=== PATIENT | female | born 1990 | race Caucasian/White ===

== ENCOUNTER 2020-02-17 19:00 | Outpatient (CLI) | payer OTHER, SELFPAY ==
[2015-09-01 16:23] VITALS: BMI 20.5
[2020-02-17 19:21] VITALS: BP 127/80; PULSE 72
[2020-02-17 19:22] VITALS: PULSE 74; TEMP 36.1; O2SAT 99; BMI 32.1
[2020-02-17] MEDS: Lactated Ringers 1,000 ML 50 ML IV (20:10)
[2020-02-17 21:04] LABS: Absolute Lymphocyte Count 2.43 X10^3/uL (0.83-4.51); Absolute Neutrophil Count 5.7 X10^3/uL (2.0-7.7); Basophil# 0.03 X10^3/uL; Basophil% 0.3 % (0-1); Eosinophils% 1.1 % (0-5); Hematocrit 36.4 % (37-47); Hemoglobin 12.5 g/dL (12.0-15.0); Lymphocyte # 2.43 X10^3/ul (4.0); Lymphocyte % 27.4 % (19-41); Mean Corp Hgb Conc 34.3 g/dL (32-36); Mean Corpuscular Hgb 30.8 pg (27.0-32.0); Mean Corpuscular Volume 89.7 fL (81-99); Mean Platelet Vol. 9.1 fl (6.2-12.0); Monocyte# 0.58 X10^3/uL; Monocyte% 6.5 % (0-10); NRBC Flagged by Analyzer 0 % (0-5); Neutrophil # 5.69 X10^3/uL (2.7-7.7); Neutrophil % 64.1 % (47-70); Platelet Count 230 K/mm3 (150-450); RBC Distribution Width CV 13.6 % (11.6-14.6); RBC Distribution Width SD 44.7 fl (35.1-43.9); Red Blood Count 4.06 M/mm3 (4.2-5.4); White Blood Count 8.9 K/mm3 (4.4-11.0)
--- NOTE | 2020-02-18 04:32 | HP.PCM_ITS ---
History Date of Admission: 02/17/20 Final RAJ: 02/11/20 Gestational age: 40 6/7 weeks History of this : This is a 29 year-old, parous female presented for cervical ripening for 41-week induction. Ever, after arrival, patient expressed that she was having some a nxiety over induction and was not comfortable with that plan. She really wanted to elect for primary section. has been uncomplicated to date. Allergies sulfamethoxazole [From Bactrim] Adverse Reaction (Verified 09/01/15 16:24) Nausea trimethoprim [From Bactrim] Adverse Reaction (Verified 09/01/15 16:24) Nausea Home Medications: Home Medications Vits [Prenatabs FA] 1 tab PO DAILY 02/17/20 Smoking Status: Current every day smoker Number of Fetus(es): 1 NST - FHR Rate Baby A Baseline: normal Variability:: Moderate Accelerations:: None Decelerations:: None NST Reactive:: Yes FHR Category:: Category I Uterine Activity:: irritability History Past Pregnancies: Past Pregnancies Delivery Date Name GA/ Weeks Outcome Route Wt Sex Labor Length Anesthesia Delivery Location Provider FOB Physical Exam Vitals: Vital Signs Temp Pulse BP Pulse Ox 97.0 F L 74 127/80 H 99 02/17/20 19:22 02/17/20 19:22 02/17/20 19:21 02/17/20 19:22 General: Alert, Cooperative, No apparent distress Abdomen: Soft, Non Tender, Non-Distended, Gravid Neurological: Neuro grossly intact Assessment/Plan This is a 29 year-old, nulliparous female at 40-6/7 weeks declines induction. After I discussed with her and her partner the risk benefits and alternatives to section, including both short and long-term complications of as well as implications for further pregnancies. Discussed this versus induction versus expectant management for spontaneous labor were reviewed. I left the room and gave the patient and her partner discussed the plan. After their discussion, I revisited the plan with them. They elected for primary section. As it was late in the evening, I discussed with him that we would not proceed with an elective surgery and I would have to schedule it for the next day. Patient was comfortable with this plan. They agreed to be discharged home and return tomorrow. N.p.o. status was reviewed with patient.
== END 2020-02-17 21:10 | disposition home or self-care (01) ==
LOC: WPOUT 02-18 07:41 → WP 02-18 07:52
PROVIDERS: Obstetrics & Gynecology; Visit Provider Obstetrics & Gynecology
DX: O99.333 Smoking (tobacco) complicating pregnancy, third trimester (principal); F17.200 Nicotine dependence, unspecified, uncomplicated; Z3A.40 40 weeks gestation of pregnancy; Z88.1 Allergy status to other antibiotic agents; Z88.2 Allergy status to sulfonamides
CPT/HCPCS: 59025; 59050; 85025; 86850; 86900; 86901; J7120

== ENCOUNTER 2020-02-18 13:30 | Inpatient (IN) | payer OTHER, SELFPAY ==
[2020-02-17 19:22] VITALS: BMI 32.1
[2020-02-18] VITALS (13 sets, daily range): BP systolic 88–114; BP diastolic 38–83; PULSE 55–74; RESP 14–16; TEMP 35.8–36.7; O2SAT 97–100; BMI 31.7
[2020-02-18] MEDS: Lactated Ringers 1,000 ML 999 ML IV (14:00)
[2020-02-18 14:21] LABS: Absolute Lymphocyte Count 2.67 X10^3/uL (0.83-4.51); Absolute Neutrophil Count 5.9 X10^3/uL (2.0-7.7); Basophil# 0.04 X10^3/uL; Basophil% 0.4 % (0-1); Hematocrit 40.2 % (37-47); Hemoglobin 13.7 g/dL (12.0-15.0); Lymphocyte # 2.67 X10^3/ul (4.0); Lymphocyte % 27.9 % (19-41); Mean Corp Hgb Conc 34.1 g/dL (32-36); Mean Corpuscular Hgb 31.4 pg (27.0-32.0); Mean Corpuscular Volume 92.2 fL (81-99); Mean Platelet Vol. 9.1 fl (6.2-12.0); Monocyte# 0.79 X10^3/uL; Monocyte% 8.3 % (0-10); NRBC Flagged by Analyzer 0 % (0-5); Neutrophil # 5.91 X10^3/uL (2.7-7.7); Neutrophil % 61.8 % (47-70); Platelet Count 221 K/mm3 (150-450); RBC Distribution Width CV 13.7 % (11.6-14.6); RBC Distribution Width SD 46.5 fl (35.1-43.9); Red Blood Count 4.36 M/mm3 (4.2-5.4); White Blood Count 9.6 K/mm3 (4.4-11.0)
[2020-02-18] MEDS: Lactated Ringers 1,000 ML 150 ML IV (15:04)
[2020-02-18] MEDS: Sodium Citrate/Citric Acid 30 ML UDC PO (15:24)
--- NOTE | 2020-02-18 15:43 | HP.PCM_ITS ---
History Date of Admission: 02/17/20 Final RAJ: 02/11/20 Gestational age: 41 Weeks and 0 Days History of this : This is a 29 year-old, F1 P0 @ 41 weeks w/ unfavorable cervix who declines expectant management or induction and desires primary c/s. has been uncomplicated to date. Medical history is noncontributory. Past surgical history: None Allergies sulfamethoxazole [From Bactrim] Allergy (Intermediate, Verified 02/18/20 14:07) Anaphylaxis trimethoprim [From Bactrim] Adverse Reaction (Intermediate, Verified 02/18/20 14:07) Anaphylaxis Home Medications: Home Medications Vits [Prenatabs FA] 1 tab PO DAILY 02/17/20 Smoking Status: Former smoker Alcohol: None Number of Fetus(es): 1 History Past Pregnancies: Past Pregnancies Delivery Date Name GA/ Weeks Outcome Route Wt Sex Labor Length Anesthesia Delivery Location Provider FOB Expected Delivery Method: Scheduled Section Review of Systems Constitutional: Denies: Chills, Fever, Weakness Eyes: Denies: Blurred vision Gastrointestinal: Denies: Abdominal Pain, Nausea, Vomiting Neurological: Denies: Blurred vision, Change in Speech, Slurred speech Hematologic/ Lymphatic: Denies: Anemia Physical Exam General: Alert, Cooperative, No apparent distress Cardiovascular: Regular rate Lungs: Clear to auscultation Abdomen: Soft, Non Tender, Non-Distended, Gravid, Appropriate for Gestational Age Extremities:: No clubbing, No cyanosis, Other - 1+ edema Neurological: Cranial nerves II-XII grossly intact Assessment/Plan This is a 29 year-old, @41 weeks presents for elective primary c/s. Patient is requesting section. Risk benefits and alternatives to section in the discussed with the patient, her questions were answered to her satisfaction she desires to proceed. We reviewed short as well as long- term complications and risks with the including implications for future fertility and . Consent was signed. Patient desires to proceed with section. She understands that this is not the recommendation but I am honoring her request and autonomy. Essential Procedure Criteria Procedure Essential: Yes Criteria Note: plans c/s Risk to Patient if Procedure Delayed: Threat to patient's life if surgery or procedure is delayed - Patient 41 weeks, risk to patient and increased risk of demise if continues
[2020-02-18] MEDS: Cefazolin 2 GM in 0.9% Normal Saline 100 ML IV (15:56)
--- NOTE | 2020-02-18 16:57 | PCM.OPRPT ---
Delivery Classification: Scheduled Final RAJ: 02/11/20 Final RAJ Source: US <20 weeks Gestational age: 41 Weeks and 0 Days inside sales manager: Aminta Fernández Type of Anesthesia:: Spinal Special Medications: duramorph Implants Used: none Date of Procedure: 02/18/20 Pre-Operative Diagnosis: 41 week , desires elective primary delivery Post-Operative Diagnosis: same Description of Procedure: The patient was taken to the operating room. She was prepped and draped in the dorsal supine position with a leftward tilt. A Pfannenstiel skin incision was made approximately 2 cm above the symphysis pubis and carried through to underlying layer fascia with the scalpel. The fascia was incised incised in the midline and extended laterally with the Linton scissors. The fascia was dissected off the rectus muscles with blunt and sharp dissection. The rectus muscles were in the midline and the peritoneum was entered bluntly. The peritoneal incision was stretched and the bladder blade was placed. The uterine incision was made in a low transverse fashion with the scalpel and extended superiorly and inferiorly with blunt dissection. The amniotic membranes were ruptured bluntly and clear amniotic fluid returned. The infant's head was brought to the incision in the flexed position and delivered without difficulty. The remainder of the infant was delivered with gentle traction and fundal pressure in the standard fashion. The mouth and nares were bulb suctioned. The cord was clamped and cut as the infant was stimulated. Cord clamping was delayed. The infant was handed off to the waiting nursing staff. The placenta was delivered with fundal massage and gentle traction in the standard fashion. The uterus was exteriorized and cleared of all clots and debris. The cervix was dilated with a ring forcep. The uterine incision was closed with #1 Vicryl in a running locked fashion. A second layer of the same suture was used in an imbricating fashion. The incision was examined and was found to be hemostatic. The uterus was placed back into the peritoneal cavity and hemostasis was again confirmed. The rectus muscles were examined and any bleeding was Bovie cauterized. The parietal peritoneum and rectus muscles were closed en bloc with an 0 Vicryl running suture. The surgical teams outer gloves were then changed. The rectus fascia was examined and any bleeding was Bovie cauterized and the rectus fascia was closed with 1 Vicryl suture in a running standard fashion. The subcutaneous tissue was examining and any bleeding was Bovie cauterized. The subcutaneous tissue was reapproximated with 3-0 Vicryl suture. The skin was closed in a subcuticular fashion by the INSURANCE COUNSELOR with me present in the labor and delivery suite. I performed the remainder of the procedure with assistance. All sponge, lap, and needle counts were correct. The patient was taken to her room for recovery in a stable condition. Amniotic Membrane Rupture Type: Artificial Amniotic Fluid Description: Clear Placenta Disposition: [facility] Specimen(s) sent to pathology: none Drain: Hurst to straight drain Fluids Replaced: 1000 Cord Entanglement: None Cord Vessel Description: 3 Vessels Esitmated Blood Loss (ml): 800 Infant Gender: Female - Kayne (1 minute): 8 (5 minute): 9 Delayed cord clamping: Yes Antibiotic Given: Ancef 2 grams IV x1 Complications: None - Admit VTE Documentation VTE Present on Admission: No VTE Mechan Device Prophylaxis: SCD's VTE Pharm Prophylaxis ordered?: No Reason prophylaxis not ordered:: Procedure Not Indicated
[2020-02-18] MEDS: Oxytocin 30 units/NS 500 ml 30 UNITS/500 ML IV.SOLN 167 UNITS IV (17:16)
[2020-02-18] MEDS: Lactated Ringers 1,000 ML 100 ML IV (20:18)
[2020-02-18] MEDS: Ketorolac 30 MG/ML Syringe IV (23:23)
[2020-02-19] VITALS (8 sets, daily range): BP systolic 86–112; BP diastolic 48–68; PULSE 66–80; RESP 16–18; TEMP 36.4–36.8; O2SAT 97–98
[2020-02-19] MEDS: Acetaminophen 500 MG Tablet 1000 MG PO ×2 (03:00→12:50)
--- NOTE | 2020-02-19 04:27 | CPS ---
Given to pt and instructed by RN
[2020-02-19 05:14] LABS: Hematocrit 30.5 % (37-47); Hemoglobin 10.3 g/dL (12.0-15.0); Mean Corp Hgb Conc 33.8 g/dL (32-36); Mean Corpuscular Hgb 31.3 pg (27.0-32.0); Mean Corpuscular Volume 92.7 fL (81-99); Mean Platelet Vol. 8.7 fl (6.2-12.0); Platelet Count 156 K/mm3 (150-450); RBC Distribution Width CV 13.7 % (11.6-14.6); RBC Distribution Width SD 46.9 fl (35.1-43.9); Red Blood Count 3.29 M/mm3 (4.2-5.4)
[2020-02-19] MEDS: Ketorolac 30 MG/ML Syringe IV ×4 (05:22→22:47)
[2020-02-19] MEDS: 0.9% Saline Lock 10 ML Syringe IV ×5 (05:23→22:48)
--- NOTE | 2020-02-19 11:58 | PCM.PN.OB ---
Subjective: Doing well per patient and nursing staff. Ambulating and taking PO without difficulty. Voiding and passing flatus. without concerns. Denies headache, visual changes, chest pain, shortness of breath, increased vaginal bleeding or leg pain. Lochia moderate. Planning D/C home tomorrow. - Physical Exam Vitals/I&O's: Vital Signs Temp Pulse Resp BP Pulse Ox 98.0 F 73 16 104/63 98 02/19/20 11:18 02/19/20 11:18 02/19/20 11:18 02/19/20 11:18 02/19/20 07:55 Oxygen Delivery Method Room Air Weight: 184 lb 15.485 oz Body Mass Index (BMI) 31.7 Intake and Output for Last 24 Hours 02/17/20 02/18/20 02/19/20 23:59 23:59 23:59 Intake Total 1992.5 / 1991.5 1465 / 1465 Output Total 100 / 100 700 / 700 Balance 1892.5 / 1892.5 765 / 765 General: Alert, Oriented x3, Cooperative HEENT: Atraumatic, Normocephalic Neck: Trachea Midline Lungs: Clear to auscultation, Normal air movement, No rhonchi, No wheeze Cardiovascular: Regular rate, Regular Rhythm, No murmurs Abdomen: Soft, Hypoactive Bowel Sounds - Fundus firm 2 below U Extremities: No edema - Sofy's negative Psych/Mental Status: Normal Affect, Appropriate Laboratory Results 02/18/20 14:00: WBC 9.6, RBC 4.36, Hgb 13.7, Hct 40.2, MCV 92.2, MCH 31.4, MCHC 34.1, RDW Std Deviation 46.5 H, RDW Coeff of Livier 13.7, Plt Count 221, MPV 9.1, Immature Gran % (Auto) 0.600, Neut % (Auto) 61.8, Lymph % (Auto) 27.9, [place] % (Auto) 8.3, Eos % (Auto) 1.0, Baso % (Auto) 0.4, Absolute Neuts (auto) 5.9, Absolute Lymphs (auto) 2.67, Nucleated RBC % 0 02/18/20 14:00: Blood Type A POSITIVE, Antibody Screen NEGATIVE 02/19/20 05:00: WBC 13.0 H, RBC 3.29 L, Hgb 10.3 L, Hct 30.5 L, MCV 92.7, MCH 31.3, MCHC 33.8, RDW Std Deviation 46.9 H, RDW Coeff of [place] 13.7, Plt Count 156, MPV 8.7 Current Medications Acetaminophen (Tylenol) 1,000 mg PO Q8H PRN PRN Reason: Pain Score 1-3/10 Last Admin: 02/19/20 03:00 Dose: 1,000 mg Documented by: Bisacodyl (Dulcolax) 10 mg RECTAL UD PRN PRN Reason: If no BM Diphenhydramine HCl (Benadryl) 25 mg PO Q6H PRN PRN PRN Reason: ITCHING Stop: 02/19/20 16:01 Hydrocortisone (Hytone) 1 applic TOPICAL TID PRN PRN; Protocol PRN Reason: Discomfort Naloxone HCl 4 mg/ Dextrose 504 mls @ 0 mls/hr IV .Q0M PRN; Protocol PRN Reason: Respiratory depression Ketorolac Tromethamine (Toradol (Bkc)) 30 mg IV Q6H JOSÉ Stop: 02/20/20 17:01 Last Admin: 02/19/20 11:04 Dose: 30 mg Documented by: Methylergonovine Maleate (Methergine) 0.2 mg IM X1 PRN PRN Reason: Uterine Atony Nalbuphine HCl (Nubain) 5 mg IV Q3H PRN PRN PRN Reason: ITCHING Stop: 02/19/20 16:01 Naloxone HCl (Narcan) 0.02 mg IV Q1M PRN PRN Reason: RR <10 and pt unresponsive Naproxen (Naprosyn) 250 - 500 mg PO Q8H PRN PRN PRN Reason: Pain Score 1-3/10 Ondansetron HCl (Zofran) 4 mg IV Q4H PRN PRN PRN Reason: Nausea Oxycodone HCl (Oxyir) 5 - 10 mg PO Q4H PRN PRN PRN Reason: Pain Score 4-10/10 Prochlorperazine Edisylate (Compazine Iv) 10 mg IV Q6H PRN PRN PRN Reason: NAUSEA Senna/Docusate Sodium (Senokot-S, Domi-Colace) 0 tablet PO DAILY PRN PRN Reason: Constipation Simethicone (Mylicon) 80 mg PO PCHS PRN PRN Reason: Indigestion/stomach pain Sodium Chloride () 5 - 15 ml IV UD PRN PRN Reason: SALINE FLUSH Last Admin: 02/19/20 11:06 Dose: 10 ml Documented by: Medical Necessity - Tobacco Use Smoking Status: Former smoker Assessment/Plan A:POD #1 Primary Section P: 1) Routine postoperative and support 2) Vital signs stable 3) Lochia normal 4) Pain control 5) Planning D/C home tomorrow.
[2020-02-19] MEDS: oxyCODONE 5 MG Tablet PO ×2 (16:17→21:07)
[2020-02-19] MEDS: Senna/Docusate Sodium 1 Tablet PO (22:47)
[2020-02-20] MEDS: oxyCODONE 5 MG Tablet PO ×2 (02:34→11:41)
[2020-02-20 02:55] VITALS: BP 97/61; PULSE 66; RESP 18; TEMP 36.1
[2020-02-20] MEDS: Ketorolac 30 MG/ML Syringe IV ×2 (04:44→11:30)
[2020-02-20] MEDS: 0.9% Saline Lock 10 ML Syringe IV ×2 (04:44→11:31)
[2020-02-20] MEDS: Acetaminophen 500 MG Tablet 1000 MG PO (06:39)
[2020-02-20 09:21] VITALS: BP 106/67; PULSE 71; RESP 14; TEMP 37.1
--- NOTE | 2020-02-20 10:23 | PCM.PN.OB ---
Subjective: pain well controlled, average lochia, no N/V, +flatus, no BM. Denies lightheadedness, BONILLA or SOB - Physical Exam Vitals/I&O's: Vital Signs Temp Pulse Resp BP Pulse Ox 98.7 F 71 14 106/67 98 02/20/20 09:21 02/20/20 09:21 02/20/20 09:21 02/20/20 09:21 02/19/20 07:55 Oxygen Delivery Method Room Air Weight: 83.9 kg Body Mass Index (BMI) 31.7 Intake and Output for Last 24 Hours 02/18/20 02/19/20 02/20/20 23:59 23:59 23:59 Intake Total 1992.5 / 1991.5 1465 / 1465 Output Total 100 / 100 1500 / 1500 Balance 1892.5 / 1892.5 -35 / -35 General: Alert, Cooperative, No apparent distress Abdomen: Soft, Distended - mildly, softly, Tender - appropriately Extremities: Edema - 1+ Skin: Incision - bandage clean, dry and intact Current Medications Acetaminophen (Tylenol) 1,000 mg PO Q8H PRN PRN Reason: Pain Score 1-3/10 Last Admin: 02/20/20 06:39 Dose: 1,000 mg Documented by: Bisacodyl (Dulcolax) 10 mg RECTAL UD PRN PRN Reason: If no BM Hydrocortisone (Hytone) 1 applic TOPICAL TID PRN PRN; Protocol PRN Reason: Discomfort Naloxone HCl 4 mg/ Dextrose 504 mls @ 0 mls/hr IV .Q0M PRN; Protocol PRN Reason: Respiratory depression Ketorolac Tromethamine (Toradol (Bkc)) 30 mg IV Q6H JOSÉ Stop: 02/20/20 17:01 Last Admin: 02/20/20 04:44 Dose: 30 mg Documented by: Methylergonovine Maleate (Methergine) 0.2 mg IM X1 PRN PRN Reason: Uterine Atony Naloxone HCl (Narcan) 0.02 mg IV Q1M PRN PRN Reason: RR <10 and pt unresponsive Naproxen (Naprosyn) 250 - 500 mg PO Q8H PRN PRN PRN Reason: Pain Score 1-3/10 Ondansetron HCl (Zofran) 4 mg IV Q4H PRN PRN PRN Reason: Nausea Oxycodone HCl (Oxyir) 5 - 10 mg PO Q4H PRN PRN PRN Reason: Pain Score 4-10/10 Last Admin: 02/20/20 02:34 Dose: 10 mg Documented by: Prochlorperazine Edisylate (Compazine Iv) 10 mg IV Q6H PRN PRN PRN Reason: NAUSEA Senna/Docusate Sodium (Senokot-S, Domi-Colace) 0 tablet PO DAILY PRN PRN Reason: Constipation Last Admin: 02/19/20 22:47 Dose: 2 tablet Documented by: Simethicone (Mylicon) 80 mg PO PCHS PRN PRN Reason: Indigestion/stomach pain Sodium Chloride () 5 - 15 ml IV UD PRN PRN Reason: SALINE FLUSH Last Admin: 02/20/20 04:44 Dose: 10 ml Documented by: Medical Necessity - Tobacco Use Smoking Status: Former smoker Assessment/Plan POD#2 doing well routine care and doing well desires d/c home today
--- NOTE | 2020-02-20 10:30 | PCM.DCCSEC ---
Discharge Diet: No Restrictions Discharge Activity: Return to Normal Activity, May Not Drive - for 2 weeks, May not drive while taking narcotic pain medications., May Shower, May Take a Tub Bath - in 7 days. May resume sexual activity in: 4-6 weeks Lifting Restrictions: 20 pounds Additional Activity Instructions:: Nothing in the vagina for 4-6 weeks. You may return to work/school in 6 weeks. Call your doctor if your incision/area has: Continuous Slow Oozing, Sudden Increased Bleeding, Increased Pain/ Swelling, Increased Redness, Foul Smelling Discharge Call your doctor if you observe: Fever of 101 or Higher, Using more than one pad per hour - for 2 hours Suture Line Care: Avoid Pulling/Pushing, Avoid Pinching/Bending Cleanse incision/area with: Keep Dressing Clean & Dry Additional Instructions: If you experience any of the following, contact your healthcare provider. Bleeding that soaks a pad every hour for 2 hours Fever 100.4 or higher Unrelieved incision or abdominal pain Swelling, redness, discharge or bleeding from your incision or episiotomy site Your incision begins to separate Problems urinating (including inability to urinate or burning while urinating). Visual changes Severe headache Flu-like symptoms Pain or redness in one of both of your breasts Pain, warmth, tenderness or swelling in your legs, especially the calf area Frequent nausea and vomiting Symptoms of depression or anxiety If you experience any of the following, call 911 or go to the nearest Emergency Room. Chest pain Problems breathing Seizure activity Partial or complete paralysis of a body part, slurred speech, weakness or drooping of the face, or a sudden inability to walk or hold your balance Allergies/Adverse Reactions: Allergies sulfamethoxazole [From Bactrim] Allergy (Intermediate, Verified 02/18/20 14:07) Anaphylaxis trimethoprim [From Bactrim] Adverse Reaction (Intermediate, Verified 02/18/20 14:07) Anaphylaxis Medications to take at Discharge Vits [Prenatabs FA ] 1 tab PO DAILY 02/17/20 Ibuprofen [Motrin] 600 mg PO Q6H PRN #60 tab 02/20/20 Oxycodone [Oxyir] 5 mg PO Q6H PRN PRN 7 Days #15 tab 02/20/20 The following prescriptions were given: Ibuprofen [Motrin] 600 mg PO Q6H PRN #60 tab PRN Reason: Pain Transmission Status: Sent to [facility] Oxycodone [Oxyir] 5 mg PO Q6H PRN PRN 7 Days #15 tab PRN Reason: severe pain Transmission Status: Sent to [facility] Follow-Up: Call to make an appointment with your doctor for an incision check in 1-2 weeks. You will also need a 6 week post- follow up appointment. Test results from this visit will be discussed in further detail at your follow-up appointment, if applicable. Please Follow Up With: Marlen Henderson MD - Call to make an appointment for an incision check in 1-2 [phone] When: You will need a post check in 6 weeks. Primary Care Physician: Care Physician,No Primary [Primary Care Provider] -
--- NOTE | 2020-02-20 10:31 | DS.PCM_ITS ---
Discharge Date and Diagnosis Date of Admission: 02/17/20 Date of Discharge: 02/20/20 Hospital Course and Treatment Operations: - - primary LTCS Procedures: - - none Summary of Care Provided: The patient is a 29 year old underwent a primary low transverse section on 02/18/2020. Patient was 41 weeks. Declined induction of labor expectant management. After extensive counseling on the options, patient elec dawn for primary section. This was performed without difficulty. By postoperative day #2 she was ambulating, urinating tolerating regular diet without difficulty. The was doing well. Patient desired discharge home. She was given routine instructions and prescriptions. [] - Physical Exam Vitals/I&O's: Vital Signs Temp Pulse Resp BP Pulse Ox 98.7 F 71 14 106/67 98 02/20/20 09:21 02/20/20 09:21 02/20/20 09:21 02/20/20 09:21 02/19/20 07:55 Oxygen Delivery Method Room Air Weight: 83.9 kg Body Mass Index (BMI) 31.7 Intake and Output for Last 24 Hours 02/18/20 02/19/20 02/20/20 23:59 23:59 23:59 Intake Total 1992.5 / 1991.5 1465 / 1465 Output Total 100 / 100 1500 / 1500 Balance 1892.5 / 1892.5 -35 / -35 Current Medications Acetaminophen (Tylenol) 1,000 mg PO Q8H PRN PRN Reason: Pain Score 1-3/10 Last Admin: 02/20/20 06:39 Dose: 1,000 mg Documented by: Bisacodyl (Dulcolax) 10 mg RECTAL UD PRN PRN Reason: If no BM Hydrocortisone (Hytone) 1 applic TOPICAL TID PRN PRN; Protocol PRN Reason: Discomfort Naloxone HCl 4 mg/ Dextrose 504 mls @ 0 mls/hr IV .Q0M PRN; Protocol PRN Reason: Respiratory depression Ketorolac Tromethamine (Toradol (Bkc)) 30 mg IV Q6H JOSÉ Stop: 02/20/20 17:01 Last Admin: 02/20/20 04:44 Dose: 30 mg Documented by: Methylergonovine Maleate (Methergine) 0.2 mg IM X1 PRN PRN Reason: Uterine Atony Naloxone HCl (Narcan) 0.02 mg IV Q1M PRN PRN Reason: RR <10 and pt unresponsive Naproxen (Naprosyn) 250 - 500 mg PO Q8H PRN PRN PRN Reason: Pain Score 1-3/10 Ondansetron HCl (Zofran) 4 mg IV Q4H PRN PRN PRN Reason: Nausea Oxycodone HCl (Oxyir) 5 - 10 mg PO Q4H PRN PRN PRN Reason: Pain Score 4-10/10 Last Admin: 02/20/20 02:34 Dose: 10 mg Documented by: Prochlorperazine Edisylate (Compazine Iv) 10 mg IV Q6H PRN PRN PRN Reason: NAUSEA Senna/Docusate Sodium (Senokot-S, Domi-Colace) 0 tablet PO DAILY PRN PRN Reason: Constipation Last Admin: 02/19/20 22:47 Dose: 2 tablet Documented by: Simethicone (Mylicon) 80 mg PO PCHS PRN PRN Reason: Indigestion/stomach pain Sodium Chloride () 5 - 15 ml IV UD PRN PRN Reason: SALINE FLUSH Last Admin: 02/20/20 04:44 Dose: 10 ml Documented by: Discharge Diet: No Restrictions Discharge Activity: Return to Normal Activity, May Not Drive - for 2 weeks, May not drive while taking narcotic pain medications., May Shower, May Take a Tub Bath - in 7 days. May resume sexual activity in: 4-6 weeks Additional Activity Instructions:: Nothing in the vagina for 4-6 weeks. You may return to work/school in 6 weeks. Call your doctor if your incision/area has: Continuous Slow Oozing, Sudden Increased Bleeding, Increased Pain/ Swelling, Increased Redness, Foul Smelling Discharge Call your doctor if you observe: Fever of 101 or Higher, Using more than one pad per hour - for 2 hours Suture Line Care: Avoid Pulling/Pushing, Avoid Pinching/Bending Cleanse incision/area with: Keep Dressing Clean & Dry Home Medications: Medications to take at Discharge Vits [Prenatabs FA ] 1 tab PO DAILY 02/17/20 Ibuprofen [Motrin] 600 mg PO Q6H PRN #60 tab 02/20/20 Oxycodone [Oxyir] 5 mg PO Q6H PRN PRN 7 Days #15 tab 02/20/20 Following Prescrptions Were Given to Patient: Ibuprofen [Motrin] 600 mg PO Q6H PRN #60 tab PRN Reason: Pain Transmission Status: Sent to [facility] Oxycodone [Oxyir] 5 mg PO Q6H PRN PRN 7 Days #15 tab PRN Reason: severe pain Transmission Status: Sent to [facility] Primary Care Physician: Care Physician,No Primary [Primary Care Provider] - Please Follow Up With: Marlen Henderson MD - Call to make an appointment for an incision check in 1-2 [phone] When: You will need a post check in 6 weeks. Medical Necessity - Tobacco Use Smoking Status: Former smoker Meaningful Use Info Meaningful Use Diagnoses (Choose all that apply): None applicable
[2020-02-20 13:29] VITALS: BP 110/77; PULSE 84; RESP 14; TEMP 36.4
--- NOTE | 2020-02-20 15:29 | NURSING ---
1515 to carseat and placed in pts lap on w/c. to private car in stable condition.
== END 2020-02-20 15:15 | disposition home or self-care (01) | DRG 788 ==
PROVIDERS: Admitting Provider Obstetrics & Gynecology; Visit Provider Obstetrics & Gynecology
DX: O48.0 Post-term pregnancy (principal); Z3A.41 41 weeks gestation of pregnancy; Z37.0 Single live birth; Z87.891 Personal history of nicotine dependence
CPT/HCPCS: 85025; 85027; 86850; 86900; 86901; 99218; J7120; A4216; G0378

== ENCOUNTER 2020-07-23 18:28 | Emergency (ER) | payer OTHER, SELFPAY ==
[2020-02-18 14:05] VITALS: BMI 31.7
[2020-07-23 18:30] VITALS: BP 130/79; PULSE 68; RESP 17; TEMP 36.2; O2SAT 98; BMI 25.4
--- NOTE | 2020-07-23 18:55 | US_ITS ---
STUDY: ABDOMINAL ULTRASOUND - RIGHT UPPER QUADRANT REASON FOR VISIT: Female, 30 years old mid and left upper quadrant pain after eating. Diarrhea. TECHNIQUE: Ultrasound evaluation of the right upper quadrant was performed with real-time and static aguilar-scale imaging. TECHNICAL QUALITY: Adequate. COMPARISON: None. FINDINGS: Liver: The liver measures 16.1 cm. There is normal echogenicity of the liver. The bile ducts are within normal limits. There is hepatic color flow. The direction of portal flow is hepatopetal. There is no demonstrated mass lesion. Gallbladder: Normal distended gallbladder. The gallbladder wall measures 3 mm. There is a negative sonographic Reynolds''s sign. There is no pericholecystic fluid. There are no gallstones. Common Bile Duct (C.B.D.): The common bile duct measures 2 mm. Pancreas: Normal size of the head, body and tail of the pancreas. There is normal echogenicity of the pancreas. There is no demonstrated pancreatic mass or cyst. Right Kidney: Normal size of the right kidney. The right kidney measures 10.8 cm. Normal renal cortex. The right cortex measures 1.2 cm. There is no demonstrated renal mass or cyst. Question 5 mm calcification in a mid renal calyx without hydronephrosis. There is no right hydronephrosis. US/Abdomen Limited IMPRESSION: Question nonobstructing right renal calculus. The study is otherwise unremarkable Electronically Signed: Morales Fernandez DO at 20:35 EDT Tel [phone], Service support ,
--- NOTE | 2020-07-23 18:56 | ED.DCSUM_ITS ---
History of Present Illness Chief Complaint: Abd Pain Narrative: Kinjal 10-year-old female with no significant past medical history presents with concern for epigastric pain. States it began approximately 5 to 6 days ago. States it is significantly worse 30 minutes to 1-1/2 hours after she eats. Describes it as a pain that is sharp and radiates through to her back. Denies any significant nausea or vomiting. Denies any urinary symptoms. Denies any vaginal bleeding or discharge. Denies any chest pain or shortness of breath. Patient was seen at previous emergency department 3 days ago where she received lab work and a CT which were negative. Patient is not a current smoker. Patient did recently have section 5 months ago but has had no issues since then. Past Medical History - Allergies and Home Meds Allergies/Adverse Reactions: Allergies sulfamethoxazole [From Bactrim] Allergy (Intermediate, Verified 07/23/20 18:29) Anaphylaxis trimethoprim [From Bactrim] Adverse Reaction (Intermediate, Verified 07/23/20 18:29) Anaphylaxis Primary Care Physician: Kenzie Love ASSOCIATE PROFESSOR OF PATHOLOGY, ASSOCIATE PROFESSOR OF PATHOLOGY-C [Primary Care Provider] - Past Medical History: None Surgical History: - - C section Lives: With Family Smoking Status: Current some day smoker Alcohol: Rare Drugs: None Review of Systems General: Denies: Chills, Fever, Sweats Eyes: Denies: Visual changes - bilaterally, Diplopia ENT: Denies: Rhinorrhea, Sore throat Cardiovascular: Denies: Chest pain, Palpitations Respiratory: Denies: Dyspnea, Cough, Dyspnea on exertion Gastrointestinal: Reports: Abdominal pain. Denies: Nausea, Vomiting, Diarrhea, Melena, Hematochezia Genitourinary: Denies: Dysuria, Hematuria, Frequency Musculoskeletal: Denies: Back pain, Extremity Pain Skin: Denies: Rash, Wounds Neurological: Denies: Headache, Weakness, Numbness Physical Exam Vital Signs/Narrative: Vital Signs Temp Pulse Resp BP Pulse Ox 07/23/20 18:30 97.2 F L 68 17 130/79 H 98 General: Well nourished, Well developed, No Acute Distress Head: Normocephalic, Atraumatic Eyes: Perrl, EOMI ENT: Moist mucous membranes, No rhinorrhea Neck: Supple, Nontender Cardiovascular: Regular rate, Regular rhythm, No murmurs Respiratory: No distress, CTA bilaterally, Chest nontender Abdomen: Soft, Nondistended, Normal bowel sounds, - - TTP in the upper epigastrum. Back: Nontender, Normal Inspection Extremities: Nontender, No edema Skin: Normal color, No rash Neurological: Alert, Oriented x3, Cranial nerves II-XII grossly intact, Normal Strength, Normal Sensation Psychological: Normal affect, Normal Mood Diagnostic/Tx/Re-eval Clinical Impression(s) from Imaging Studies Abdomen Ultrasound 07/23/20 18:55 IMPRESSION: Question nonobstructing right renal calculus. The study is otherwise unremarkable Electronically Signed: Morales Fernandez DO at 20:35 EDT Tel [phone], Service support , Laboratory Data 07/23/20 07/23/20 07/23/20 19:00 19:00 19:10 WBC 7.5 RBC 4.62 Hgb 13.7 Hct 40.2 MCV 87.0 MCH 29.7 MCHC 34.1 RDW Std Deviation 42.9 RDW Coeff of Livier 13.5 Plt Count 248 MPV 8.3 Immature Gran % (Auto) 0.300 Neut % (Auto) 39.9 L Lymph % (Auto) 41.6 H [place] % (Auto) 5.8 Eos % (Auto) 11.5 H Baso % (Auto) 0.9 Absolute Neuts (auto) 3.0 Absolute Lymphs (auto) 3.11 Nucleated RBC % 0 Sodium 139 Potassium 3.6 Chloride 108 H Carbon Dioxide 24.0 Anion Gap 7 BUN 11 Creatinine 0.80 Estim Creat Clear Calc 89.60 Est GFR (MDRD) Af Amer 109 Est GFR (MDRD) Non-Af 90 BUN/Creatinine Ratio 13.8 Glucose 81 Calcium 8.9 Total Bilirubin 0.40 Direct Bilirubin 0.12 AST 17 ALT 21 Alkaline Phosphatase 92 Total Protein 7.5 Albumin 4.0 Globulin 3.5 Albumin/Globulin Ratio 1.1 Urine Color Urine Clarity Urine pH Ur Specific [place] Urine Protein Urine Glucose (UA) Urine Ketones Urine Occult Blood Urine Nitrite Urine Bilirubin Urine Urobilinogen Ur Leukocyte Esterase Urine RBC Urine WBC Ur Squamous Epith Cells Urine Bacteria Urine Mucus Urine Test Negative 07/23/20 19:10 WBC RBC Hgb Hct MCV MCH MCHC RDW Std Deviation RDW Coeff of [place] Plt Count MPV Immature Gran % (Auto) Neut % (Auto) Lymph % (Auto) [place] % (Auto) Eos % (Auto) Baso % (Auto) Absolute Neuts (auto) Absolute Lymphs (auto) Nucleated RBC % Sodium Potassium Chloride Carbon Dioxide Anion Gap BUN Creatinine Estim Creat Clear Calc Est GFR (MDRD) Af Amer Est GFR (MDRD) Non-Af BUN/Creatinine Ratio Glucose Calcium Total Bilirubin Direct Bilirubin AST ALT Alkaline Phosphatase Total Protein Albumin Globulin Albumin/Globulin Ratio Urine Color Yellow Urine Clarity Clear Urine pH 5.0 Ur Specific [place] 1.020 Urine Protein Negative Urine Glucose (UA) Normal Urine Ketones 5 H Urine Occult Blood Negative Urine Nitrite Negative Urine Bilirubin Negative Urine Urobilinogen Normal Ur Leukocyte Esterase Negative Urine RBC 0 SEEN Urine WBC 0 SEEN Ur Squamous Epith Cells 0-5 SEEN Urine Bacteria 0 SEEN Urine Mucus 0 SEEN Urine Test - Medical Decision Making Patient appears well nontoxic. Vital signs within normal limits. Symptoms consistent with peptic ulcer. Lab work within normal limits. Right upper quadrant ultrasound normal. Patient given GI cocktail which did somewhat resolve her symptoms. Will be given Protonix, Bentyl, Toradol. Patient will be given Protonix as well as Bentyl for home. Given GI follow-up. Advised to stay away from spicy food, carbonated beverages, smoking. ED Disposition - Plan for ED Patient: Disposition: Home or Assisted Living Instructions: Peptic Ulcer Prescriptions: Dicyclomine HCl [Bentyl] 20 mg PO TIDAC #20 cap Prescription Printed Sucralfate [Carafate] 1 gm PO 4X/DAY #58 tab Prescription Printed Pantoprazole Sodium [Protonix] 40 mg PO DAILY #30 tab Prescription Printed Referrals: Kenzie Love NP, ASSOCIATE PROFESSOR OF PATHOLOGY-C [Primary Care Provider] - 2 Days Nando Turner MD [NON-STAFF] - 3-5 Days
[2020-07-23] MEDS: 0.9% Normal Saline 1,000 ML 1000 ML IV (19:23)
[2020-07-23] MEDS: Mag Hydrox/Al Hydrox/Simeth 30 ML UDC PO (19:24)
[2020-07-23 19:25] LABS: Bacteria 0 SEEN /hpf (None Seen); Mucous, Urine 0 SEEN /hpf (<or=2+); Red Blood Cells-Urine 0 SEEN /hpf (0-5); White Blood Cells 0 SEEN /hpf (0-5)
[2020-07-23 19:32] LABS: Color, Urine Yellow (Yellow); Glucose, Dipstick Normal (Normal); Ketone-Dipstick 5 mg/dl (Negative); Leukocyte Esterase-Dipstick Negative /ul (Negative); Nitrite-Dipstick Negative (Negative); Occult Blood-Urine Negative /ul (Negative); Protein-Dipstick Negative (Negative); Urine Bilirubin Dipstick Negative (Negative); Urine Clarity Clear (Clear); Urine Urobilinogen Normal (Normal)
[2020-07-23 19:37] LABS: Absolute Lymphocyte Count 3.11 X10^3/uL (0.83-4.51); Basophil# 0.07 X10^3/uL; Basophil% 0.9 % (0-1); Eosinophil# 0.86 X10^3/uL; Eosinophils% 11.5 % (0-5); Hematocrit 40.2 % (37-47); Hemoglobin 13.7 g/dL (12.0-15.0); Lymphocyte # 3.11 X10^3/ul (4.0); Lymphocyte % 41.6 % (19-41); Mean Corp Hgb Conc 34.1 g/dL (32-36); Mean Corpuscular Hgb 29.7 pg (27.0-32.0); Mean Platelet Vol. 8.3 fl (6.2-12.0); Monocyte# 0.43 X10^3/uL; Monocyte% 5.8 % (0-10); NRBC Flagged by Analyzer 0 % (0-5); Neutrophil # 2.98 X10^3/uL (2.7-7.7); Neutrophil % 39.9 % (47-70); Platelet Count 248 K/mm3 (150-450); RBC Distribution Width CV 13.5 % (11.6-14.6); RBC Distribution Width SD 42.9 fl (35.1-43.9); Red Blood Count 4.62 M/mm3 (4.2-5.4); White Blood Count 7.5 K/mm3 (4.4-11.0)
[2020-07-23 19:48] LABS: Internal QC Validated? YES +Cl - CLEAR BKGD; Pregnancy, Urine Negative Negative
[2020-07-23 19:51] LABS: ALB/GLOB Ratio 1.1 RATIO (0.9-2.4); AST(SGOT) 17 U/L (15-37); Alanine Aminotransfer ALT/SGPT 21 U/L (13-56); Alkaline Phosphatase 92 U/L (45-117); Anion Gap 7 (5-15); BUN 11 mg/dL (7-18); BUN/Creat Ratio 13.8 RATIO (10-20); Bilirubin, Direct 0.12 mg/dL (0.00-0.30); Calcium,Total 8.9 mg/dL (8.5-10.1); Chloride 108 mmol/L (98-107); EST Glomerular Filtration Rate 90 mL/min (>60); Est Glom Filt Rate - Afr Amer 109 mL/min (>60); Globulin 3.5 g/dL (2.2-4.2); Glucose 81 mg/dL (74-106); Potassium 3.6 mmol/L (3.5-5.1); Protein, Total 7.5 g/dL (6.4-8.2); Sodium Level 139 mmol/L (136-145)
[2020-07-23 20:06] LABS: Squamous Epithelial Cells - UA 0-5 SEEN /hpf (5-10)
[2020-07-23 20:29] VITALS: BP 113/75; PULSE 59; RESP 18; O2SAT 98
[2020-07-23] MEDS: Dicyclomine 10 MG Capsule 20 MG PO (21:05)
[2020-07-23] MEDS: Ketorolac 15 MG/ML Vial IV (21:05)
[2020-07-23 22:04] VITALS: BP 121/71; PULSE 70; RESP 18; O2SAT 98
== END 2020-07-23 22:04 | disposition home or self-care (01) ==
PROVIDERS: Emergency Provider Emergency Medicine; PCP Nurse Practitioner Family
DX: R10.13 Epigastric pain (principal)
CPT/HCPCS: 76705; 80053; 80076; 81001; 81025; 85025; 96361; 96365; 96375; 99285; J7030; J7050; A4216; J3490

== ENCOUNTER → 2020-07-28 17:19 | Outpatient (CLI) | payer OTHER, SELFPAY ==
[2020-07-23 18:30] VITALS: BMI 25.4
== END ==
PROVIDERS: PCP Nurse Practitioner Family; Referring Provider Internal Medicine Gastroenterology; Visit Provider Internal Medicine Gastroenterology
DX: Z11.59 Encounter for screening for other viral diseases (principal)
CPT/HCPCS: 87635; C9803; U0003

== ENCOUNTER → 2020-08-17 10:18 | Outpatient (CLI) | payer OTHER, SELFPAY ==
[2020-07-23 18:30] VITALS: BMI 25.4
--- NOTE | 2020-08-17 10:19 | NM_ITS ---
CLINICAL: 30-year-old female with reported history of right upper quadrant abdominal pain. RADIONUCLIDE HEPATOBILIARY SCINTIGRAPHY COMPARISON: Abdominal ultrasound report 07/23/2020 FINDINGS: Following the intravenous administration of 5.6 mCi of 99m Tc Mebrofenin, hepatobiliary images reveal: 1. Relatively prompt and homogeneous radiopharmaceutical concentration is noted by a normal sized liver. No parenchymal defects are identified. 2. Gallbladder activity is identified at 30 minutes post radiopharmaceutical administration. 3. Small intestinal tract is observed at 10 minutes following tracer injection. 4. Washout of the radiopharmaceutical by the hepatic parenchyma appears qualitatively normal. 5. There is scintigraphic evidence of transient (single frame defined) pre-CCK duodenal gastric reflux observed at 30 minutes following tracer injection. Cholecystokinin (0.02 ug/kg) was administered intravenously over a 30-minute period. The post CCK gallbladder ejection fraction calculated at 20 minutes following Cholecystokinin administration was noted to be 85.0 % (normal greater than 35%). During 30 minutes of post CCK imaging, there is no scintigraphic evidence of reflux of the radiotracer into the common hepatic duct or refilling of the gallbladder. There is scintigraphic evidence of revisualized CCK duodenal gastric reflux following cholecystokinin infusion at 25 minutes post initiated CCK provision. CA/Hepatobilliary Img w/Pharm Int IMPRESSION: 1. A gallbladder ejection fraction calculated to be greater than 35% following the administration of Cholecystokinin makes the probability of functional hepatobiliary disease (gallbladder and/or sphincter of Oddi dyskinesia) and/or organic hepatobiliary disease (chronic acalculous cholecystitis and/or cystic duct syndrome) to be low. (Zack Ryan et al, Journal of Nuclear Medicine 32:1695, 1991). 2. There is scintigraphic evidence of pre-post CCK duodenal-gastric reflux as defined above. (Magaly et al, Nucl Med Jigna Maddie Press pg. 35, 1980). Electronically Signed: Sixto Velasquez DO at 22:07 EST Tel , Service support ,
== END ==
PROVIDERS: PCP Nurse Practitioner Family; Referring Provider Nurse Practitioner Family; Visit Provider Nurse Practitioner Family
DX: R10.10 Upper abdominal pain, unspecified (principal)
CPT/HCPCS: 78227; A9537; J2805